=== PATIENT | female | born 1975 | race Caucasian/White ===

== ENCOUNTER → 2020-06-07 10:18 | Outpatient (CLI) | payer OTHER, SELFPAY ==
--- NOTE | ~2020-06-07 | US_ITS ---
EXAMINATION: US pelvic complete w TV DATE: 06/07/2020 10:46 INDICATION: Menorrhagia Comparison:No prior studies for comparison. TECHNIQUE: Multiple transabdominal and endovaginal sonographic images of the pelvis performed. FINDINGS: The uterus measures 9.3 x 5.4 x 5.5 cm. There are uterine fibroids including a 1.8 cm fibro id anteriorly and a 2 cm exophytic pedunculated fibroid on the left The endometrial complex measures 4 mm. The right ovary measures 1.9 x 1.8 x 1.3 cm and the left ovary measures 2.6 x 2.5 x 2.3 cm. There ar e small follicles in each ovary. Normal doppler signal in both ovaries. There is no free fluid in the pelvis. There are no abnormal masses seen on either side. IMPRESSION: 1. Uterine fibroids. Reviewed, dictated and finalized at location B. IMPRESSION: 1. Uterine fibroids.
== END ==
PROVIDERS: PCP Internal Medicine; Visit Provider Student in an Organized Health Care Education/Training Program
DX: N93.9 Abnormal uterine and vaginal bleeding, unspecified (principal); D25.9 Leiomyoma of uterus, unspecified
CPT/HCPCS: 76830; 76856

== ENCOUNTER → 2020-06-07 10:22 | Outpatient (CLI) | payer OTHER, SELFPAY ==
--- NOTE | ~2020-06-07 | XR_ITS ---
EXAMINATION: XR_[id number]_CR EXAM DATE: 06/07/2020 11:25 INDICATION: Scoliosis. TECHNIQUE: Cervical spine frontal, lateral, lateral swimmers, and open-mouth odontoid projections. There is no prior study for comparison. FINDINGS: Upper thoracic levoscoliosis reported with the thoracic spine x-ray same date. There is mi ld cervical disc disease C5-6 and 6-7 with mild to moderate uncovertebral joint arthropathy likely at these levels causing some stenosis. Mild diffuse cervical facet arthropathy. The vertebral bodies a re aligned in the AP dimension. The odontoid process is intact. The lateral masses of C1 line up wit h C2. Prevertebral soft tissue and pre-dens space are within normal limits. IMPRESSION: 1. Overall mild cervical spondylosis. 2. Upper thoracic levoscoliosis. Reviewed, dictated and finalized at location A.
--- NOTE | ~2020-06-07 | XR_ITS ---
XR lumbar spine 2-3V 06/07/2020 11:25 Indication: Scoliosis Procedure: 3 views lumbar spine Comparison: No prior studies for comparison. Findings: There is dextroscoliosis of the thoracic spine partially visualized, centered at T11. No fr acture or traumatic malalignment. Vertebral body heights are maintained. No significant disc narrowin g. No evidence for spondylolisthesis. Pedicles intact. There are amorphous calcifications in the left pelvis, likely fibroid calcifications. Impression: 1: Dextroscoliosis centered in the lower thoracic spine. Reviewed, dictated and finalized at location B. Impression: 1: Dextroscoliosis centered in the lower thoracic spine.
--- NOTE | ~2020-06-07 | XR_ITS ---
EXAMINATION: XR thoracic spine 3V EXAM DATE: 06/07/2020 11:25 INDICATION: M41.9 - Scoliosis, unspecified TECHNIQUE: Frontal and lateral projections of the thoracic spine as well as lateral swimmers projecti on of the upper thoracic spine for interpretation. There is no prior study for comparison. FINDINGS: Transitional thoracolumbar level with rudimentary T12 ribs. There is 35 degrees of levoscol iosis as measured from T1 through T6, and 35 degrees of dextroscoliosis as measured from T7 through L 1. There are no bony erosions identified. The vertebral bodies are aligned in the AP dimension. Pa raspinal soft tissue is unremarkable. IMPRESSION: Moderate thoracic scoliosis. Reviewed, dictated and finalized at location A.
--- NOTE | ~2020-06-07 | XR_ITS ---
XR hip RT min 2V 06/07/2020 11:25 INDICATION: Right hip pain PROCEDURE: 2 views right hip COMPARISON: No prior studies for comparison. FINDINGS: Fracture, dislocation or subluxation is not identified. Sacral foramen are symmetric. The s oft tissues appear within normal limits. No foreign bodies are identified. IMPRESSION: 1: No significant bone or joint abnormality. Reviewed, dictated and finalized at location B.
== END ==
PROVIDERS: PCP Internal Medicine; Visit Provider Clinical Nurse Specialist
DX: M41.9 Scoliosis, unspecified (principal); M25.551 Pain in right hip; M47.892 Other spondylosis, cervical region
CPT/HCPCS: 72040; 72072; 72100; 73502

== ENCOUNTER → 2022-10-03 15:12 | Outpatient (CLI) | payer BC, SELFPAY ==
--- NOTE | ~2022-10-03 | MM_ITS ---
EXAMINATION: MM screening kailyn BI w perri HISTORY: Screening mammogram TECHNIQUE: Craniocaudal and mediolateral oblique 3-D tomosynthesis images were obtained and synthetic 2-D images were generated. CAD analysis was submitted and interpreted. COMPARISON: No prior mammogram is available for comparison at this institution. BREAST PARENCHYMAL COMPOSITION: The breasts are heterogeneously dense, which may obscure small masses . FINDINGS: There is no evidence of suspicious mass, calcification, or architectural distortion to sugg est malignancy in either breast. IMPRESSION: 1. No mammographic evidence of malignancy. 2. Recommend routine screening mammography in one year. BI-RADS Category 1: Negative Reviewed, dictated and finalized at location L.
== END ==
PROVIDERS: PCP Clinical Nurse Specialist; Visit Provider Clinical Nurse Specialist
DX: Z12.31 Encounter for screening mammogram for malignant neoplasm of breast (principal)
CPT/HCPCS: 77063; 77067